=== PATIENT | male | born 1980 | race Hispanic/Latino ===

== ENCOUNTER 2017-03-21 07:31 | Day surgery (SDC) | payer OTHER ==
[2017-03-20 16:59] LABS: BASOPHILS % (AUTO) 0.6 % (0.0-5.0); EOSINOPHILS % (AUTO) 1.1 % (0.0-8.0); HEMATOCRIT 41.9 % (42-54); LYMPHOCYTES % (AUTO) 26.7 % (21.0-51.0); MEAN CORPUSCULAR HEMOGLOBIN 30.5 pg (27.0-33.0); MEAN CORPUSCULAR HGB CONC 34.9 g/dL (32.0-36.0); MEAN CORPUSCULAR VOLUME 87.4 fL (79-99); MONOCYTES % (AUTO) 8.6 % (3.0-13.0); PLATELET COUNT (AUTO) 193 K/uL (130-400); RED BLOOD CELL COUNT(AUTO) 4.79 MIL/uL (4.50-6.20); RED CELL DISTRIBUTION WIDTH 13.5 % (11.0-15.5); WHITE BLOOD COUNT (AUTO) 8.8 K/uL (4.8-10.8)
[2017-03-20 17:12] VITALS: BP 117/56
[2017-03-20 17:21] LABS: CREATININE 0.7 mg/dL (0.5-1.5); POTASSIUM 4.6 mmol/L (3.5-5.1)
[~2017-03-21] VITALS: Ht 162.6 cm; Wt 60.8 kg
[2017-03-21] VITALS (14 sets, daily range): BP systolic 96–116; BP diastolic 51–74
[2017-03-21] MEDS: CEFAZOLIN SODIUM 1 GM VIAL IVP SCH ×2 (06:45→11:03)
[2017-03-21] MEDS ORDERED: LACTATED RINGERS 1000ML 1,000 ML IV ONE (08:08)
[2017-03-21] MEDS ORDERED: MIDAZOLAM HCL 1 MG/ML 2ML VIAL ONE ×2 (10:36→10:56)
[2017-03-21] MEDS ORDERED: LIDOCAINE PF 2% 5ML ABBOJECT ONE (10:55)
[2017-03-21] MEDS ORDERED: SUCCINYLCHOLINE 200MG/10ML SYR ONE (10:55)
[2017-03-21] MEDS ORDERED: NEOSTIGMINE METHYLSULFATE 1MG/ML IV ONE (10:55)
[2017-03-21] MEDS ORDERED: PROPOFOL 10 MG/ML 20ML VIAL IV ONE (10:55)
[2017-03-21] MEDS ORDERED: DEXAMETHASONE SOD PHOSPHATE 10MG/ML 1ML VIAL ONE (10:55)
[2017-03-21] MEDS ORDERED: ONDANSETRON HCL 4 MG/2 ML VIAL ONE (10:55)
[2017-03-21] MEDS ORDERED: FENTANYL CITRATE PF 50 MCG/1 ML 2ML VIAL ONE (10:56)
[2017-03-21] MEDS ORDERED: CEFAZOLIN SODIUM 1 GM VIAL ONE (11:20)
[2017-03-21] MEDS ORDERED: OCTYL 2-CYANOACRYLATE 1 EACH TP ONE (11:45)
[2017-03-21] MEDS ORDERED: KETOROLAC TROMETHAMINE 30MG/ML ONE (12:19)
[2017-03-21] MEDS ORDERED: MEPERIDINE-PF 25 MG/ML SYG ONE ×2 (12:20→12:29)
== END 2017-03-21 13:54 | disposition home or self-care (01) ==
LOC: DAH 07:31
PROVIDERS: ATTEND Orthopaedic Surgery
DX: D36.10 Benign neoplasm of peripheral nerves and autonomic nervous system, unspecified (principal); M71.22 Synovial cyst of popliteal space [Baker], left knee; F41.9 Anxiety disorder, unspecified; Z85.47 Personal history of malignant neoplasm of testis; Z98.890 Other specified postprocedural states; Z88.8 Allergy status to other drugs, medicaments and biological substances; Q21.9 Congenital malformation of cardiac septum, unspecified
CPT/HCPCS: 27328; 36415; 80048; 85025; 88304; A4218; A4649; A4930 ×2; A6207; A6223; J0330; J0690 ×2; J1100; J1885; J2001; J2175 ×2; J2250 ×2; J2405; J2704; J2710; J3010; J7030; J7120

== ENCOUNTER → 2018-03-23 | Outpatient (CLI) | payer OTHER | END | disposition home or self-care (01) | LOC: RAH 16:29 | PROVIDERS: ATTEND Internal Medicine | DX: R04.2 Hemoptysis (principal); Z85.47 Personal history of malignant neoplasm of testis | CPT/HCPCS: 71046 ==

== ENCOUNTER → 2018-07-24 | Outpatient (CLI) | payer OTHER | END | disposition home or self-care (01) | LOC: SHCH 10:57 | PROVIDERS: ATTEND Internal Medicine Cardiovascular Disease | DX: I08.8 Other rheumatic multiple valve diseases (principal) | CPT/HCPCS: 93306 ==

== ENCOUNTER → 2018-08-25 | Outpatient (CLI) | payer OTHER | END | disposition home or self-care (01) | LOC: SHCH 15:54 | PROVIDERS: ATTEND Internal Medicine Cardiovascular Disease | DX: I08.8 Other rheumatic multiple valve diseases (principal) | CPT/HCPCS: 93306 ==

== ENCOUNTER → 2018-11-03 | Outpatient (CLI) | payer OTHER | END | disposition home or self-care (01) | LOC: OIH 09:28 | PROVIDERS: ATTEND Internal Medicine | DX: R05 Cough (principal) | CPT/HCPCS: 71046 ==

== ENCOUNTER 2019-03-16 10:00 | Inpatient (IN) | payer OTHER ==
[2019-03-15 11:36] LABS: BASOPHILS % (AUTO) 0.5 % (0.0-5.0); HEMATOCRIT 45.7 % (42-54); LYMPHOCYTES % (AUTO) 25.4 % (21.0-51.0); MEAN CORPUSCULAR VOLUME 87.9 fL (79-99); MONOCYTES % (AUTO) 7.2 % (3.0-13.0); NEUTROPHILS % (AUTO) 65.3 % (40.0-77.0); PLATELET COUNT (AUTO) 204 K/uL (130-400); RED CELL DISTRIBUTION WIDTH 13.1 % (11.0-15.5); WHITE BLOOD COUNT (AUTO) 7.9 K/uL (4.8-10.8)
[2019-03-15 11:58] LABS: INR 1.03 (0.85-1.15); PARTIAL THROMBOPLASTIN TIME 27.5 SEC (26.3-35.5); PROTHROMBIN TIME 10.8 SEC (9.6-11.6)
[2019-03-15 11:59] LABS: ALBUMIN 4.4 g/dL (3.5-5.0); BILIRUBIN,TOTAL 0.5 mg/dL (0.2-1.0); CREATININE 0.9 mg/dL (0.5-1.5); POTASSIUM 3.9 mmol/L (3.5-5.1); TOTAL PROTEIN, SERUM 7.8 g/dL (6.0-8.3)
[2019-03-15 12:31] LABS: HEMOGLOBIN A1C 5.7 % (4.0-6.0)
[2019-03-15 12:38] VITALS: BP 102/55
[~2019-03-16] VITALS: Ht 162.6 cm; Wt 56.0 kg
[~2019-03-16 10:00] MED LIST: HYDR-4060 PO
[2019-03-17] VITALS (43 sets, daily range): BP systolic 89–187; BP diastolic 43–99
[2019-03-17] MEDS ORDERED: SODIUM CHLORIDE 0.9% 1000ML 1,000 ML IV ONE (08:53)
[2019-03-17] MEDS: CEFAZOLIN SODIUM 1 GM VIAL IVP SCH ×2 (09:00→10:32)
[2019-03-17] MEDS ORDERED: DELNIDO FORMULA 1 BAG IV ONE (09:01)
--- NOTE | 2019-03-17 09:28 | NUR ---
POTENTIAL FOR INFECTION: SHAVED FROM CHIN TO BILATERAL FEET PER MISHEL MANRIQUEZ, FOLLOWED BY WIPING WITH WILL: 2% CHLORHEXIDINE GLUCONATE CLOTH PATIENTS PRE-OP SKIN PREP.
[2019-03-17] MEDS ORDERED: PROTAMINE SULFATE 10 MG/ML 25ML VIAL IV ONE (09:36)
[2019-03-17] MEDS ORDERED: NOREPINEPHRINE BITARTRATE 1 MG/1 ML ML IV ONE (09:36)
[2019-03-17] MEDS ORDERED: EPINEPHRINE 1 MG/ML AMPULE ONE (09:36)
[2019-03-17] MEDS ORDERED: LIDOCAINE PF 2% 5ML ABBOJECT ONE ×3 (09:36→10:37)
[2019-03-17] MEDS ORDERED: AMINOCAPROIC ACID 250 MG/ML 20 ML VIAL IV ONE ×2 (09:36→16:55)
[2019-03-17] MEDS ORDERED: FENTANYL CITRATE PF 50 MCG/1 ML 20ML VIAL IJ ONE (09:36)
[2019-03-17] MEDS ORDERED: HEPARIN SODIUM 1000UNIT/ML 10ML VIAL ONE (09:36)
[2019-03-17] MEDS ORDERED: PROPOFOL 10 MG/ML 20ML VIAL IV ONE ×2 (09:36→13:04)
[2019-03-17] MEDS ORDERED: ESMOLOL HCL 10 MG/ML 10 ML VIAL ONE (09:36)
[2019-03-17] MEDS ORDERED: SODIUM BICARB 50MEQ 50ML VIAL ONE (09:36)
[2019-03-17] MEDS ORDERED: MIDAZOLAM HCL 1 MG/ML 2ML VIAL ONE (09:37)
[2019-03-17] MEDS ORDERED: ROCURONIUM 10MG/1ML SYR 10 MG/ML ML ONE ×2 (09:39→09:40)
[2019-03-17] MEDS ORDERED: AMINOCAPROIC ACID 15,000 MG in SODIUM CHLORIDE 0.9% 500ML 500 ML IV PRN (09:45)
[2019-03-17] MEDS ORDERED: EPINEPHRINE 10 MG in SODIUM CHLORIDE 0.9% 250 ML IV PRN (09:45)
[2019-03-17] MEDS ORDERED: BACITRACIN 50,000 UNIT VIAL ONE (09:45)
[2019-03-17] MEDS ORDERED: NOREPINEPHRINE BITARTRATE 8 MG in DEXTROSE 5%-WATER 250 ML IV PRN (09:45)
[2019-03-17] MEDS ORDERED: NITROGLYCERIN 50 MG/D5% WATER 1 BOT ONE (10:04)
[2019-03-17] MEDS ORDERED: MAGNESIUM SULFATE 1 GM/2 ML VIAL ONE (10:40)
[2019-03-17] MEDS ORDERED: AMIODARONE HCL 50 MG/ML 3 ML VIAL ONE (10:40)
[2019-03-17 11:20] LABS: ABG HCO3 17.7 mmol/L (21.0-28.0); ABG OXYGEN SATURATION 99.1 % (95.0-99.0); ABG PCO2 24 mmHg (35-48)
[2019-03-17] MEDS ORDERED: SODIUM CHLORIDE 0.9% 500ML 500 ML IV SCH (11:43)
[2019-03-17] MEDS ORDERED: NITROGLYCERIN 50 MG/D5% WATER 250 BOT IV SCH (11:45)
[2019-03-17] MEDS ORDERED: DEXTROSE 50%-WATER 50 ML DISP.SYRIN IV PRN (11:45)
[2019-03-17] MEDS ORDERED: AMINOCAPROIC ACID 15,000 MG in SODIUM CHLORIDE 0.9% 250 ML IV SCH (11:45)
[2019-03-17] MEDS ORDERED: SODIUM CHLORIDE 0.9% 1000ML 1,000 ML IV SCH (11:45)
[2019-03-17] MEDS ORDERED: EPINEPHRINE 10 MG in DEXTROSE 5%-WATER 250 ML IV PRN (11:45)
[2019-03-17] MEDS ORDERED: MORPHINE SULFATE 4 MG/1ML SYG IV PRN (11:45)
[2019-03-17] MEDS ORDERED: GLUCAGON 1MG KIT 1 MG ML IM PRN (11:45)
[2019-03-17] MEDS ORDERED: MORPHINE SULFATE 2 MG/ML 1ML SYG IV PRN (11:45)
[2019-03-17] MEDS ORDERED: POTASSIUM PHOS 15 mMOL+NS250ML 250 ML IV PRN (11:45)
[2019-03-17] MEDS ORDERED: INSULIN REGULAR, HUMAN 3ML 100 UNIT in SODIUM CHLORIDE 0.9% 99 ML IV SCH ×2 (11:45)
[2019-03-17] MEDS ORDERED: MAGNESIUM 2GM PREMIX 50ML 50 ML IV PRN (11:45)
[2019-03-17] MEDS ORDERED: SODIUM CHLORIDE 0.9% 250 ML IV PRN (11:45)
[2019-03-17] MEDS ORDERED: ACETAMINOPHEN 650 MG SUPPOSITORY RC PRN (11:45)
[2019-03-17] MEDS ORDERED: NOREPINEPHRINE 4MG/NS 250ML 250 ML IV PRN (11:45)
[2019-03-17] MEDS ORDERED: PROPOFOL 1000 MG/100 ML 100 ML IV PRN (11:45)
[2019-03-17] MEDS ORDERED: ALBUMIN (HUMAN) 5% 250 ML IV PRN (11:45)
[2019-03-17] MEDS ORDERED: SODIUM CHLORIDE 0.9% 10 ML VIAL IVP PRN (11:45)
[2019-03-17] MEDS ORDERED: SODIUM BICARB 50MEQ 50ML VIAL IV PRN (11:45)
[2019-03-17 11:57] LABS: ABG HCO3 18.9 mmol/L (21.0-28.0); ABG OXYGEN SATURATION 98.6 % (95.0-99.0); ABG PCO2 25 mmHg (35-48)
[2019-03-17 12:47] LABS: ABG BASE EXCESS -2.6 mmol/L (-2.0-3.0); ABG HCO3 22.3 mmol/L (21.0-28.0); ABG OXYGEN SATURATION 98.8 % (95.0-99.0); ABG PCO2 39 mmHg (35-48)
[2019-03-17] MEDS ORDERED: KETAMINE 50MG/ML SYRINGE 50 MG/ML DISP.SYRIN IV ONE (12:49)
--- NOTE | 2019-03-17 13:08 | NUR ---
ARRIVAL TO CVR Received from OR. Juanita Strauss, RN, and ELENA Welsh at bedside. Orally intubated tolerating vent settings as prescribed. Off sedation. Drainage circled on sternotomy surgical dressing. Arterial line and CVP monitoring leveled and zeroed. Assessment complete and documented. Amicar infusig at 50cc/hr. Insulin drip initiated at 3units/hr. ASBP 150s, vasopressor turned off. Sinus mechanism in 70s, no ectopy noted. Side rails up.
[2019-03-17 13:37] LABS: HEMATOCRIT 35.4 % (42-54); MEAN CORPUSCULAR HGB CONC 33.6 g/dL (32.0-36.0); MEAN CORPUSCULAR VOLUME 86.3 fL (79-99); PLATELET COUNT (AUTO) 127 K/uL (130-400); WHITE BLOOD COUNT (AUTO) 22.8 K/uL (4.8-10.8)
[2019-03-17 13:44] LABS: ABG BASE EXCESS -0.2 mmol/L (-2.0-3.0); ABG HCO3 23.5 mmol/L (21.0-28.0); ABG OXYGEN SATURATION 98.7 % (95.0-99.0); ABG PCO2 35 mmHg (35-48)
[2019-03-17 13:49] LABS: CREATININE 0.8 mg/dL (0.5-1.5); MAGNESIUM 3.3 mg/dL (1.80-2.40); PHOSPHORUS 3.6 mg/dL (2.5-4.9); POTASSIUM 3.7 mmol/L (3.5-5.1)
[2019-03-17 13:54] LABS: INR 1.24 (0.85-1.15); PARTIAL THROMBOPLASTIN TIME 28.2 SEC (26.3-35.5); PROTHROMBIN TIME 12.9 SEC (9.6-11.6)
--- NOTE | 2019-03-17 13:55 | NUR ---
ELIJAH Brewster from [facility] called for Dr. Wallace, made aware of pt arrival to CVR.
--- NOTE | 2019-03-17 14:15 | NUR ---
FAMILY Pt's and parents at bedside. Update given and plan of care discussed, verbalized understanding.
[2019-03-17] MEDS: POTASSIUM CHLORIDE 20MEQ/100ML 100 ML IV PRN (15:12)
--- NOTE | 2019-03-17 15:30 | NUR ---
MD ROUNDS Dr. Fontanez in to see pt, update given. No new orders received.
[2019-03-17] MEDS: CALCIUM GLUCONATE 1 GM in SODIUM CHLORIDE 0.9% 50 ML IV PRN (15:34)
[2019-03-17] MEDS: ONDANSETRON HCL 4 MG/2 ML VIAL IV PRN ×2 (15:53→23:30)
[2019-03-17] MEDS: TRAMADOL HCL 50 MG TABLET PO PRN ×2 (15:53→21:39)
[2019-03-17 16:15] LABS: ABG BASE EXCESS -2.5 mmol/L (-2.0-3.0); ABG HCO3 24.2 mmol/L (21.0-28.0); ABG OXYGEN SATURATION 97.5 % (95.0-99.0); ABG PCO2 49 mmHg (35-48)
[2019-03-17] MEDS: CEFAZOLIN SODIUM 1 GM VIAL IV SCH ×2 (16:19→23:49)
[2019-03-17] MEDS ORDERED: SODIUM BICARB 8.4% 50ML SYRINGE IVP ONE (16:55)
[2019-03-17] MEDS ORDERED: PHENYLEPHRINE HCL 10 MG/ML 1ML VIAL IV ONE (16:55)
[2019-03-17] MEDS ORDERED: MANNITOL 25% 50ML VIAL IV ONE (16:55)
[2019-03-17] MEDS ORDERED: CALCIUM CHLORIDE 100 MG/ML 10 ML SYG IVP ONE (16:55)
[2019-03-17] MEDS ORDERED: HEPARIN SODIUM 1000UNIT/ML 10ML VIAL IV ONE (16:55)
[2019-03-17] MEDS ORDERED: MAGNESIUM SULFATE 1 GM/2 ML VIAL IM ONE (16:55)
[2019-03-17] MEDS ORDERED: ALBUMIN (HUMAN) 25% 50 ML IV ONE (16:55)
[2019-03-17 17:23] LABS: ABG HCO3 30.2 mmol/L (21.0-28.0); ABG OXYGEN SATURATION 97.7 % (95.0-99.0); ABG PCO2 51 mmHg (35-48)
--- NOTE | 2019-03-17 17:30 | NUR ---
EXTUBATION Fully awake, follows commands, able to sustain head lift, strong bilateral hand blending tank tender. Arterial blood gases within normal limits. Negative inspiratory force of -[id number], Vital capacity 1000cc. Extubated and placed on Aerosol mask at 40% Fi02, oxygen saturation at 100%. Instructed not to speak ffor 2 hours, nods understanding. Heart pillow within reach.
[2019-03-17 18:54] LABS: ABG BASE EXCESS 1.6 mmol/L (-2.0-3.0); ABG HCO3 27.3 mmol/L (21.0-28.0); ABG OXYGEN SATURATION 97.9 % (95.0-99.0); ABG PCO2 47 mmHg (35-48)
[2019-03-17] MEDS: ACETAMINOPHEN 325 MG TAB PO PRN (19:35)
[2019-03-17] MEDS: FAMOTIDINE/PF 20 MG/2 ML VIAL IV SCH (20:36)
[2019-03-18] VITALS (30 sets, daily range): BP systolic 93–133; BP diastolic 39–97
[2019-03-18 03:30] LABS: HEMATOCRIT 31.8 % (42-54); MEAN CORPUSCULAR HEMOGLOBIN 29.6 pg (27.0-33.0); MEAN CORPUSCULAR HGB CONC 33.6 g/dL (32.0-36.0); MEAN CORPUSCULAR VOLUME 87.8 fL (79-99); PLATELET COUNT (AUTO) 127 K/uL (130-400); RED BLOOD CELL COUNT(AUTO) 3.62 MIL/uL (4.50-6.20); RED CELL DISTRIBUTION WIDTH 13.4 % (11.0-15.5); WHITE BLOOD COUNT (AUTO) 15.5 K/uL (4.8-10.8)
[2019-03-18 03:39] LABS: CREATININE 0.8 mg/dL (0.5-1.5); MAGNESIUM 1.8 mg/dL (1.80-2.40); PHOSPHORUS 4.5 mg/dL (2.5-4.9); POTASSIUM 3.6 mmol/L (3.5-5.1)
[2019-03-18 03:47] LABS: INR 1.08 (0.85-1.15); PARTIAL THROMBOPLASTIN TIME 27.1 SEC (26.3-35.5); PROTHROMBIN TIME 11.3 SEC (9.6-11.6)
[2019-03-18 04:15] LABS: ABG BASE EXCESS 0.9 mmol/L (-2.0-3.0); ABG OXYGEN SATURATION 97.5 % (95.0-99.0); ABG PCO2 43 mmHg (35-48)
[2019-03-18] MEDS: CALCIUM GLUCONATE 1 GM in SODIUM CHLORIDE 0.9% 50 ML IV PRN (04:20)
[2019-03-18] MEDS: POTASSIUM CHLORIDE 20MEQ/100ML 100 ML IV PRN (04:21)
[2019-03-18] MEDS: FAMOTIDINE/PF 20 MG/2 ML VIAL IV SCH ×2 (07:54→21:02)
[2019-03-18] MEDS: ONDANSETRON HCL 4 MG/2 ML VIAL IV PRN (07:54)
[2019-03-18] MEDS: CEFAZOLIN SODIUM 1 GM VIAL IV SCH (07:54)
[2019-03-18] MEDS: FUROSEMIDE 10 MG/ML 2ML VIAL IV SCH ×2 (07:54→21:02)
[2019-03-18] MEDS: TRAMADOL HCL 50 MG TABLET PO PRN (09:18)
--- NOTE | 2019-03-18 09:30 | NUR ---
PT HAS HAD ISSUES WITH POST OP NAUSEA/VOMITING . MEDICATED PRN. FATHER AT BEDSIDE. DR Ravindra GARCIA HERE TO SEE PATIENT. ROUNDS MADE
--- NOTE | 2019-03-18 10:03 | NUR ---
Initial Assessment Patient lives with spouse. He has no home services. 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 DME: glucometer (no insulin). Patient was independent and drove prior to admission. As per patient, spouse and family will assist at home when discharged. DCP is Home. Addendum: 03/18/19 at 1005 by MERARI SORIANO SS Amended: Links added.
[2019-03-18] MEDS: KETOROLAC TROMETHAMINE 30MG/ML IV PRN ×2 (12:02→17:18)
--- NOTE | 2019-03-18 12:24 | NUR ---
DR TAN ROUNDS MADE..PLEASE REFER TO ORDERS. NO ACUTE CHANGES NOTED. STARTED ON TORADOL FOR PAIN
--- NOTE | 2019-03-18 17:30 | NUR ---
PT TRANSFERRED TO ROOM 219. HAND OFF REPORT GIVEN TO LINDSEY CA
[2019-03-19] VITALS (24 sets, daily range): BP systolic 86–125; BP diastolic 37–88
[2019-03-19] MEDS: KETOROLAC TROMETHAMINE 30MG/ML IV PRN ×3 (00:15→15:08)
[2019-03-19 04:17] LABS: HEMATOCRIT 26.5 % (42-54); MEAN CORPUSCULAR HEMOGLOBIN 29.1 pg (27.0-33.0); MEAN CORPUSCULAR HGB CONC 33.6 g/dL (32.0-36.0); MEAN CORPUSCULAR VOLUME 86.6 fL (79-99); PLATELET COUNT (AUTO) 95 K/uL (130-400); RED BLOOD CELL COUNT(AUTO) 3.06 MIL/uL (4.50-6.20); RED CELL DISTRIBUTION WIDTH 13.2 % (11.0-15.5); WHITE BLOOD COUNT (AUTO) 12.8 K/uL (4.8-10.8)
[2019-03-19 04:27] LABS: CREATININE 0.8 mg/dL (0.5-1.5); POTASSIUM 3.5 mmol/L (3.5-5.1)
[2019-03-19] MEDS: METOPROLOL TARTRATE 25 MG TAB PO SCH ×2 (09:00→21:18)
[2019-03-19] MEDS: FAMOTIDINE 20MG TAB 20 MG TAB PO SCH ×2 (09:15→21:17)
[2019-03-19] MEDS: FUROSEMIDE 20 MG TABLET PO SCH ×2 (09:16→18:05)
[2019-03-19] MEDS: ACETAMINOPHEN 325 MG TAB PO PRN ×2 (09:18→18:07)
[2019-03-19] MEDS: TRAMADOL HCL 50 MG TABLET PO PRN (13:32)
--- NOTE | 2019-03-19 14:45 | NUR ---
RECEIVED REPORT FROM ROBY MARIE.
--- NOTE | 2019-03-19 16:02 | NUR ---
ASSISTED BACK TO BED WITH 2 PERSON ASSIST. TOLERATED ACTIVITY WELL.
--- NOTE | 2019-03-19 17:30 | NUR ---
REMOVED LEFT RADIAL ARTERIAL LINE, RIGHT IJ CORDIS AND CAR CATHETER. TOLERATED WELL. DUE TO VOID, GIVEN URINAL. REMOVED DRESSING FROM CHEST AREA, APPLIED 4X4 GAUZE AND SECURED WITH PAPER TAPE. INCISION WELL APPROXIMATED AND WITHOUT REDNESS NOTED.
--- NOTE | 2019-03-19 19:31 | NUR ---
REPORTED OFF TO ROBY WINTERS.
--- NOTE | 2019-03-19 20:00 | NUR ---
ASSESSMENT PT RESTING QUIETLY IN BED, MOTHER AT BEDSIDE. PT CURRENTLY DENIES ANY PAIN. MEDIASTINAL CHEST TUBE INTACT AND AT 20 CM SUCTION. MEDIASTINAL DRSG C/D/I. I.S ENCOURAGED. WHITE BOARD UP-DATED. BEDSIDE MONITOR ADJUSTED TO PT NEEDS. TODD REVIEWED AND WITH IN REACH.
[2019-03-20] VITALS (7 sets, daily range): BP systolic 97–109; BP diastolic 39–62
--- NOTE | 2019-03-20 | NUR ---
ASSESSMENT PT RESTING QUIETLY IN BED, AT BEDSIDE. PT CURRENTLY DENIES ANY PAIN. MEDIASTINAL CHEST TUBE INTACT AND AT 20 CM SUCTION. MEDIASTINAL DRSG C/D/I. CALLBELL WITH IN REACH. ASSESSMENT COMPLETED, SEE FLOW SHEET.
[2019-03-20] MEDS: TRAMADOL HCL 50 MG TABLET PO PRN ×5 (00:31→23:07)
[2019-03-20 03:42] LABS: HEMATOCRIT 24.1 % (42-54); MEAN CORPUSCULAR HEMOGLOBIN 29.3 pg (27.0-33.0); MEAN CORPUSCULAR HGB CONC 33.6 g/dL (32.0-36.0); MEAN CORPUSCULAR VOLUME 87.3 fL (79-99); PLATELET COUNT (AUTO) 100 K/uL (130-400); RED BLOOD CELL COUNT(AUTO) 2.76 MIL/uL (4.50-6.20); RED CELL DISTRIBUTION WIDTH 13.1 % (11.0-15.5); WHITE BLOOD COUNT (AUTO) 9.6 K/uL (4.8-10.8)
[2019-03-20 03:58] LABS: CREATININE 0.7 mg/dL (0.5-1.5); POTASSIUM 3.7 mmol/L (3.5-5.1)
[2019-03-20] MEDS: POTASSIUM CHLORIDE 20MEQ/100ML 100 ML IV PRN (04:40)
--- NOTE | 2019-03-20 04:45 | NUR ---
REPORT PT PENDING TRANSFER TO ROOM 223. PT [id number]. AT BEDSIDE. PT CONNECT TO TELE PACK. ALL PERSONAL WITH PT REPORT GIVEN TO ARUN CA,
--- NOTE | 2019-03-20 05:05 | NUR ---
TRANSFERRED PT TRANSFERRED TO ROOM 223 VIA CARDIAC CHAIR. TELE PACK IN PLACE
[2019-03-20] MEDS ORDERED: ENOXAPARIN SODIUM 30 MG/0.3 ML SQ SCH (09:00)
[2019-03-20] MEDS: ONDANSETRON HCL 4 MG/2 ML VIAL IV PRN (09:05)
[2019-03-20] MEDS: METOPROLOL TARTRATE 25 MG TAB PO SCH ×2 (09:59→20:44)
[2019-03-20] MEDS: FAMOTIDINE 20MG TAB 20 MG TAB PO SCH ×2 (09:59→20:44)
[2019-03-20] MEDS: FUROSEMIDE 20 MG TABLET PO SCH ×2 (09:59→17:00)
[2019-03-20] MEDS ORDERED: LIDOCAINE HCL-MPF 1% 2ML VIAL IV PRN (20:00)
[2019-03-20] MEDS ORDERED: POTASSIUM CHLORIDE 20MEQ/100ML 100 ML IV PRN (20:00)
[2019-03-20] MEDS ORDERED: POTASSIUM CHLORIDE 20 MEQ ERTAB PO PRN (20:00)
[2019-03-20] MEDS ORDERED: POTASSIUM CHLORIDE 10% ELIXIR 20 MEQ/15 ML UDCUP PO PRN (20:00)
[2019-03-21 03:46] VITALS: BP 99/55
[2019-03-21 05:11] LABS: HEMATOCRIT 24.6 % (42-54); MEAN CORPUSCULAR HGB CONC 33.3 g/dL (32.0-36.0); MEAN CORPUSCULAR VOLUME 86.9 fL (79-99); PLATELET COUNT (AUTO) 122 K/uL (130-400); RED BLOOD CELL COUNT(AUTO) 2.83 MIL/uL (4.50-6.20); WHITE BLOOD COUNT (AUTO) 8.4 K/uL (4.8-10.8)
[2019-03-21 05:46] LABS: CREATININE 0.6 mg/dL (0.5-1.5); POTASSIUM 3.9 mmol/L (3.5-5.1)
[2019-03-21 07:20] VITALS: BP 93/54
[2019-03-21] MEDS: TRAMADOL HCL 50 MG TABLET PO PRN ×2 (11:01→21:24)
[2019-03-21] MEDS: FAMOTIDINE 20MG TAB 20 MG TAB PO SCH ×2 (11:01→21:25)
[2019-03-21 11:30] VITALS: BP 104/62
[2019-03-21 15:30] VITALS: BP 100/63
[2019-03-21 19:35] VITALS: BP 107/57
[2019-03-21] MEDS: ENOXAPARIN SODIUM 30 MG/0.3 ML SQ SCH (21:00)
[2019-03-21] MEDS: METOPROLOL TARTRATE 25 MG TAB PO SCH (21:24)
[2019-03-21 23:38] VITALS: BP 101/58
[2019-03-21] MEDS: ACETAMINOPHEN 325 MG TAB PO PRN (23:44)
[2019-03-22 03:52] VITALS: BP 96/58
[2019-03-22 07:51] VITALS: BP 93/57
[2019-03-22] MEDS: FAMOTIDINE 20MG TAB 20 MG TAB PO SCH ×2 (10:30→20:20)
[2019-03-22] MEDS: METOPROLOL TARTRATE 25 MG TAB PO SCH ×2 (10:30→20:14)
[2019-03-22 11:50] VITALS: BP 107/60
[2019-03-22 16:00] VITALS: BP 100/65
[2019-03-22 19:44] VITALS: BP 96/54
[2019-03-22] MEDS: ENOXAPARIN SODIUM 30 MG/0.3 ML SQ SCH (20:33)
[2019-03-22 23:26] VITALS: BP 108/57
--- NOTE | 2019-03-22 23:55 | NUR ---
NEW ORDER FROM DR YOUSSEF, PT FEELING ANXIETY AND UNABLE TO SLEEP. ATIVAN 0.5MG PO X1. HEARTRATE 107 BP 108/57
[2019-03-23] MEDS ORDERED: LORAZEPAM 0.5 MG TABLET PO ONE
[2019-03-23] MEDS ORDERED: LORAZEPAM 0.5 MG TABLET ONE ×2 (00:03→00:07)
[2019-03-23 03:50] VITALS: BP 105/55
[2019-03-23 08:09] VITALS: BP 101/60
--- NOTE | 2019-03-23 08:15 | NUR ---
AM ASSESSMENT PT LAYING IN BED. PT FEELING "EMOTIONALLY UNSTABLE" TODAY, PER PT & FAMILY. PT HAD NIGHTMARES & HALLUCINATIONS LAST NIGHT REGARDING RECENT CARDIAC SURGERY. APPEARS TO BE ANXIETY. A/O X 3. NO SOB. NO DISTRESS NOTED. DENIES CHEST PAIN OR DISCOMFORT. DENIES PALPITATIONS. TELE: SR/STACH. INCISION WELL APPROX, NO DRAINAGE NOTED. DENIES N/V AND/OR DIARRHEA. IS 1250 ML. STERNAL PRECAUTION REINFORCED. UP W/ASSISTANCE. INSTRUCTED TO CALL FOR ASSISTANCE. CALL TIFFANIE W/IN REACH.
--- NOTE | 2019-03-23 08:20 | NUR ---
AM MEDICATIONS PT REFUSING AM MEDS. PT HAVING NIGHTMARE & HALLUCINATIONS, BELIEVES MEDICATIONS ARE BEING CAUSED BY MEDICATIONS BEING GIVEN HERE IN HOSPITAL.
[2019-03-23] MEDS ORDERED: CLOPIDOGREL BISULFATE 75 MG TAB PO SCH (09:00)
[2019-03-23 12:05] VITALS: BP 97/58
[2019-03-23] MEDS ORDERED: ACET-2247 PO (15:24)
[2019-03-23] MEDS ORDERED: METO25 PO (15:24)
[2019-03-23] MEDS ORDERED: FAMO20TA8 PO (15:24)
[2019-03-23] MEDS ORDERED: CLOP75TA14 PO (15:24)
[2019-03-23] MEDS ORDERED: TRAM50TA4 PO (15:24)
[2019-03-23 16:11] VITALS: BP 105/63
--- NOTE | 2019-03-23 17:00 | NUR ---
DISCHARGE VERBAL & WRITTEN DISCHARGE INSTRUCTIONS REVIEWED & GIVEN TO PT & SPOUSE. QUESTIONS ENCOURAGED & CLARIFIED. PROPER CARE & ACTIVITY AFTER PULMONIC VALVE REPLACEMENT. NEW PRESCRIBED MEDICATIONS REVIEWED. TELE GABRIEL REMOVED. IV DISCONTINUED. CT SUTURES X 2 REMOVED. STERI STRIPS APPLIED. PT & SPOUSE TO GATHER PERSONAL BELONGINGS. WILL NOTIFY STAFF WHEN READY TO BE TAKEN TO PRIVATE VEHICLE.
--- NOTE | 2019-03-23 17:10 | NUR ---
DISCHARGE PT TAKEN TO PRIVATE VEHICLE VIA WC BY Chago YANG PCP, ACCOMPANIED BY SPOUSE. NO DISTRESS NOTED.
== END 2019-03-23 17:10 | disposition home or self-care (01) | DRG 219 ==
LOC: EDSTATUS 10:00 → DAHIP 03-17 07:30 → 2CV 03-17 13:23 → 2CH 03-18 17:32 → 2DH 03-20 04:46
PROVIDERS: ADMIT Thoracic Surgery (Cardiothoracic Vascular Surgery); ATTEND Thoracic Surgery (Cardiothoracic Vascular Surgery)
PROC: 02R Heart and Great Vessels, Replacement (ICD-10-PCS; principal; 2019-03-17 10:11)
PROC: 5A1221Z Performance of Cardiac Output, Continuous (ICD-10-PCS; 2019-03-17 10:11)
PROC: B24BZZ4 Ultrasonography of Heart with Aorta, Transesophageal (ICD-10-PCS; 2019-03-17 10:11)
DX: Q22.1 Congenital pulmonary valve stenosis (principal); I50.31 Acute diastolic (congestive) heart failure; D69.6 Thrombocytopenia, unspecified; R09.02 Hypoxemia; R06.89 Other abnormalities of breathing; D50.0 Iron deficiency anemia secondary to blood loss (chronic); I27.20 Pulmonary hypertension, unspecified; I34.1 Nonrheumatic mitral (valve) prolapse; E83.42 Hypomagnesemia; J98.4 Other disorders of lung; Z90.79 Acquired absence of other genital organ(s); Z79.899 Other long term (current) drug therapy; Z88.6 Allergy status to analgesic agent; Z91.041 Radiographic dye allergy status; Z92.21 Personal history of antineoplastic chemotherapy; Z95.2 Presence of prosthetic heart valve; Z85.47 Personal history of malignant neoplasm of testis
CPT/HCPCS: 36415; 71045; 76998; 80048; 80053; 82330; 82435; 82803; 82947; 82948; 83036; 83605; 83735; 84100; 84132; 84295; 85018; 85025; 85027; 85610; 85730; 86850; 86900; 86901; 86922; 93005; 93318; 93880; 94002; 94010; 94150; 97039; A7048; C1729; G0378; J0171; J0282; J0610; J0690; J1644; J1650; J1815; J1885; J1940; J2001; J2150; J2250; J2270; J2370; J2405; J2704; J2720; J3010; J3475; J3480; J3490; J7030; J7040; P9045; P9047

== ENCOUNTER → 2019-04-26 | Outpatient (CLI) | payer OTHER ==
[~2019-04-26] MED LIST changes: +ACET-2247 PO; +CLOP75TA14 PO; +FAMO20TA8 PO; -HYDR-4060 PO; +METO25 PO; +TRAM50TA4 PO
== END | disposition home or self-care (01) ==
LOC: RAH 15:10
PROVIDERS: ATTEND Internal Medicine Hematology & Oncology
DX: R06.02 Shortness of breath (principal); C62.10 Malignant neoplasm of unspecified descended testis; Z95.2 Presence of prosthetic heart valve
CPT/HCPCS: 71046

== ENCOUNTER → 2019-06-23 | Outpatient (CLI) | payer OTHER | END | disposition home or self-care (01) | LOC: RAH 13:44 | PROVIDERS: ATTEND Internal Medicine Cardiovascular Disease | DX: Z95.2 Presence of prosthetic heart valve (principal); R07.9 Chest pain, unspecified | CPT/HCPCS: 71250 ==

== ENCOUNTER → 2019-07-15 | Outpatient (CLI) | payer OTHER | END | disposition home or self-care (01) | LOC: SHCH 09:35 | PROVIDERS: ATTEND Internal Medicine Cardiovascular Disease | DX: I37.1 Nonrheumatic pulmonary valve insufficiency (principal) | CPT/HCPCS: 93306; 93356 ==

== ENCOUNTER → 2022-07-29 | Outpatient (CLI) | payer OTHER ==
[~2022-07-29] MED LIST changes: +CLOP-31 PO; -CLOP75TA14 PO
== END | disposition home or self-care (01) ==
LOC: RAH 10:10
PROVIDERS: ATTEND Internal Medicine Cardiovascular Disease
DX: Z13.6 Encounter for screening for cardiovascular disorders (principal)
CPT/HCPCS: 75571